=== PATIENT | female | born 1995 | race Caucasian/White ===

== ENCOUNTER 2023-10-07 13:01 | Emergency (ER) | payer BC, MEDICAID, SELFPAY ==
[2023-10-07 13:12] VITALS: BP 110/74; PULSE 99; RESP 18; TEMP 36.9; O2SAT 100; BMI 35.5
--- NOTE | 2023-10-07 13:25 | ED.NAVMDI1 ---
Documented by User: WILD Briggs 10/07/23 15:28 HPI - Nausea/Vomiting/Diarrhea General Chief complaint: Nausea/Vomiting/Diarrhea Stated complaint: NAUSEA/VOMITING Time Seen by Provider: 10/07/23 13:17 Source: patient Mode of arrival: walk-in History of Present Illness HPI Narrative: Patient is a 27-year-old female who presents to the emergency department for vomiting and diarrhea that began today. She reports diffuse upper abdominal pain. No fevers. She has not had any significant upper respiratory symptoms although she has had a mild cough. No sick contacts in the home. She is unsure if she may be . She states she has had urinary frequency. No medications taken prior to arrival. She arrives to the emergency department with a large tumbler of water that she states she has been sipping on but is unable to hold down. Related Data Previous Rx's Medication Instructions Recorded hyoscyamine sulfate 0.125 mg 0.125 mg PO Q6H PRN abdominal pain 10/07/23 tablet (Levsin) #12 tabs ondansetron 4 mg disintegrating 4 mg PO Q6H PRN nausea and 10/07/23 tablet vomiting #12 tabs Allergies Allergy/AdvReac Type Severity Reaction Status Date / Time No Known Drug Allergies Allergy Verified 10/07/23 13:18 Review of Systems ROS Constitutional Denies: fever or chills Ears, nose, mouth, and throat Denies: throat pain or nasal congestion Cardiovascular Denies: chest pain Respiratory Reports: cough; Denies: shortness of breath Gastrointestinal Reports: abdominal pain, nausea, vomiting and diarrhea Genitourinary Reports: urinary frequency Musculoskeletal Denies: back pain Integumentary/Breast Denies: rash Neurological Denies: headache Exam Narrative Exam Narrative: Gen.: Awake, alert, in no distress Head: Normocephalic, atraumatic ENT: Moist mucous membranes Respiratory: No respiratory distress Gastrointestinal: Abdomen is soft, nondistended and diffusely tender to palpation across the upper abdomen with no guarding or rebound Extremities: Moves extremities equally Psych: Normal mood and affect Neuro: No focal neuro deficit Skin: Warm, dry, intact Constitutional Vital Signs, click to edit/add: Last Vital Signs Temp 98.5 F 10/07/23 13:12 Pulse 100 H 10/07/23 14:57 Resp 18 10/07/23 14:57 BP 106/76 10/07/23 14:57 Pulse Ox 100 10/07/23 14:57 O2 Del Method Room Air 10/07/23 13:12 Course Vital Signs Vital signs: Vital Signs Temperature 98.5 F 10/07/23 13:12 Pulse Rate 99 H 10/07/23 13:12 Respiratory Rate 18 10/07/23 13:12 Blood Pressure 110/74 10/07/23 13:12 Pulse Oximetry 100 10/07/23 13:12 Oxygen Delivery Method Room Air 10/07/23 13:12 Temperature 98.5 F 10/07/23 13:12 Pulse Rate 100 H 10/07/23 14:57 Respiratory Rate 18 10/07/23 14:57 Blood Pressure 106/76 10/07/23 14:57 Pulse Oximetry 100 10/07/23 14:57 Oxygen Delivery Method Room Air 10/07/23 13:12 MDM - Nausea/Vomiting/Diarrhea MDM Narrative Medical decision making narrative: Patient treated with IV fluids, Zofran, Levsin, Pepcid. She reported feeling improved. Lab studies show 16,[address] of the abdomen and pelvis was performed showing evidence of mild colitis, in the clinical setting of 1 day of vomiting and diarrhea, the patient is discharged home with Levsin and Zofran. Her urine specimen is pending and will be checked prior to discharge. Follow-up with PCP and return to the ER if symptoms change or worsen. Medical Records Attestation: I reviewed the patient's medical records. Lab Data Attestation: I reviewed the patient's lab results. Labs: Lab Results 10/07/23 10/07/23 Range/Units 13:34 15:10 WBC 16.4 H (4.0-11.0) 10^3/uL RBC 4.40 (4.20-5.40) 10^6/uL Hgb 13.4 (12.0-16.0) g/dL Hct 40.1 (36.0-48.0) % MCV 91.1 (81.0-99.0) fL MCH 30.5 (26.7-34.0) pg MCHC 33.4 (29.9-35.2) g/dL RDW 12.6 (11.0-15.0) % Plt Count 279 (150-450) 10^3/uL MPV 9.9 (9.5-13.5) fL Neut % (Auto) 89.5 H (43.0-75.0) % Lymph % (Auto) 7.7 L (20.5-60.0) % [place] % (Auto) 2.3 (1.7-12.0) % Eos % (Auto) 0.2 L (0.9-7.0) % Baso % (Auto) 0.1 L (0.2-2.0) % Neut # (Auto) 14.7 H (1.4-6.5) 10^3/uL Lymph # (Auto) 1.3 (1.2-3.8) 10^3/uL [place] # (Auto) 0.4 (0.3-0.8) 10^3/uL Eos # (Auto) 0.0 (0.0-0.7) 10^3/uL Baso # (Auto) 0.0 (0.0-0.1) 10^3/uL Abs Immat Gran (auto) 0.04 H (0.00-0.03) 10^3/uL Imm/Tot Granulo (auto) 0.2 (0.0-0.5) % Sodium 136 (136-145) mmol/L Potassium 3.5 (3.5-5.1) mmol/L Chloride 102 (98-107) mmol/L Carbon Dioxide 24.2 (21.0-32.0) mmol/L Anion Gap 13.3 BUN 13.0 (7.0-18.0) mg/dL Creatinine 0.85 (0.55-1.02) mg/dL Est GFR ( Amer) >60 (>=60) Est GFR (Non-Af Amer) >60 (>=60) BUN/Creatinine Ratio 15.3 Glucose 99 (74-106) mg/dL Lactate 1.6 (0.4-2.0) mmol/L Calcium 8.5 (8.5-10.1) mg/dL Total Bilirubin 0.3 (0.2-1.0) mg/dL AST 24 (15-37) U/L ALT 28 (14-59) U/L Alkaline Phosphatase 99 (46-116) U/L Total Protein 7.7 (6.4-8.2) g/dL Albumin 3.6 (3.4-5.0) g/dL Globulin 4.1 g/dL Albumin/Globulin Ratio 0.9 Lipase 39.0 (16.0-77.0) U/L Serum HCG, Qual Negative (NEGATIVE) Urine Color Lt. yellow (YELLOW) Urine Clarity Clear (CLEAR) Urine pH 6.0 (5.0-9.0) Ur Specific [place] 1.010 (1.005-1.025) Urine Protein Negative (NEG/TRACE) mg/dL Urine Glucose (UA) Negative (NEGATIVE) mg/dL Urine Ketones Negative (NEGATIVE) mg/dL Urine Occult Blood Negative (NEGATIVE) Urine Nitrite Negative (NEGATIVE) Urine Bilirubin Negative (NEGATIVE) Urine Urobilinogen 0.2 (0.2-1.0) EU/dL Ur Leukocyte Esterase Negative (NEGATIVE) Imaging Data CT scan - abdomen: Attestation: I have reviewed the pertinent imaging results. Radiologist's impression: Procedure: CT abdomen pelvis w con EXAM: CT abdomen pelvis w con HISTORY: Abdominal pain, vomiting COMPARISON: None. TECHNIQUE: CT abdomen pelvis w con FINDINGS: LOWER CHEST: LUNG BASES / PLEURA: Normal. DISTAL ESOPHAGUS: Normal. HEART / VESSELS: No significant abnormality. ABDOMEN and PELVIS: LIVER: Normal. BILIARY TRACT: Normal. GALLBLADDER: No abnormality. PANCREAS: Normal. SPLEEN: Normal. ADRENALS: Normal. KIDNEYS: Symmetric excretion of contrast. LYMPH NODES: None enlarged. STOMACH / SMALL BOWEL: Mild wall thickening of a few loops of small bowel in the lower abdomen.. COLON / APPENDIX: The: Is mildly but diffusely edematous with minimal adjacent fat stranding. The colon is also fluid-filled. The appendix is normal. PERITONEUM / MESENTERY: Normal. RETROPERITONEUM: Normal. VESSELS: No significant abnormality. URINARY BLADDER: Normal. REPRODUCTIVE ORGANS: The uterus is retroverted. No suspicious adnexal mass. BODY WALL: No significant abnormality. MUSCULOSKELETAL: No significant abnormality. IMPRESSION: Findings suggestive of mild enterocolitis in the appropriate clinical setting. Electronically authenticated by: ANN MARIE SANABRIA Date: 10/07/2023 15:15 Discharge Plan Discharge Chief Complaint: Nausea/Vomiting/Diarrhea Clinical Impression: Vomiting and diarrhea Patient Disposition: Home, Self-Care Time of Disposition Decision: 15:22 Condition: Good Prescriptions / Home Meds: New hyoscyamine sulfate [Levsin] 0.125 mg tablet 0.125 mg PO Q6H PRN (Reason: abdominal pain) Qty: 12 0RF ondansetron 4 mg tablet,disintegrating 4 mg PO Q6H PRN (Reason: nausea and vomiting) Qty: 12 0RF Instructions: Acute Nausea and Vomiting (ED), Acute Abdominal Pain (ED) Stand Alone Forms: Portal Instructions Referrals: Physician,Non-Staff, MD [Primary Care Provider] - 1 week Discharge Date/Time: 10/07/23 15:55 Documented by User: Sergio Bobo MD 10/07/23 20:02 HPI - Nausea/Vomiting/Diarrhea General Chief complaint: Nausea/Vomiting/Diarrhea Stated complaint: NAUSEA/VOMITING Time Seen by Provider: 10/07/23 13:17 Related Data Previous Rx's Medication Instructions Recorded hyoscyamine sulfate 0.125 mg 0.125 mg PO Q6H PRN abdominal pain 10/07/23 tablet (Levsin) #12 tabs ondansetron 4 mg disintegrating 4 mg PO Q6H PRN nausea and 10/07/23 tablet vomiting #12 tabs Allergies Allergy/AdvReac Type Severity Reaction Status Date / Time No Known Drug Allergies Allergy Verified 10/07/23 13:18 Exam Constitutional Vital Signs, click to edit/add: Last Vital Signs Temp 98.5 F 10/07/23 13:12 Pulse 100 H 10/07/23 14:57 Resp 18 10/07/23 14:57 BP 106/76 10/07/23 14:57 Pulse Ox 100 10/07/23 14:57 O2 Del Method Room Air 10/07/23 13:12 Course Vital Signs Vital signs: Vital Signs Temperature 98.5 F 10/07/23 13:12 Pulse Rate 99 H 10/07/23 13:12 Respiratory Rate 18 10/07/23 13:12 Blood Pressure 110/74 10/07/23 13:12 Pulse Oximetry 100 10/07/23 13:12 Oxygen Delivery Method Room Air 10/07/23 13:12 Temperature 98.5 F 10/07/23 13:12 Pulse Rate 100 H 10/07/23 14:57 Respiratory Rate 18 10/07/23 14:57 Blood Pressure 106/76 10/07/23 14:57 Pulse Oximetry 100 10/07/23 14:57 Oxygen Delivery Method Room Air 10/07/23 13:12 MDM - Nausea/Vomiting/Diarrhea MDM Narrative Medical decision making narrative: Patient treated with IV fluids, Zofran, Levsin, Pepcid. She reported feeling improved. Lab studies show 16,[address] of the abdomen and pelvis was performed showing evidence of mild colitis, in the clinical setting of 1 day of vomiting and diarrhea, the patient is discharged home with Levsin and Zofran. Her urine specimen is pending and will be checked prior to discharge. Follow-up with PCP and return to the ER if symptoms change or worsen. I, Dr Bobo, have reviewed the above progress note and course of action in the ER; agree with the above. I have personally seen and evaluated this patient, gone over history and physical, and discussed disposition and treatment plan with the patient. Lab Data Labs: Lab Results 10/07/23 10/07/23 Range/Units 13:34 15:10 WBC 16.4 H (4.0-11.0) 10^3/uL RBC 4.40 (4.20-5.40) 10^6/uL Hgb 13.4 (12.0-16.0) g/dL Hct 40.1 (36.0-48.0) % MCV 91.1 (81.0-99.0) fL MCH 30.5 (26.7-34.0) pg MCHC 33.4 (29.9-35.2) g/dL RDW 12.6 (11.0-15.0) % Plt Count 279 (150-450) 10^3/uL MPV 9.9 (9.5-13.5) fL Neut % (Auto) 89.5 H (43.0-75.0) % Lymph % (Auto) 7.7 L (20.5-60.0) % [place] % (Auto) 2.3 (1.7-12.0) % Eos % (Auto) 0.2 L (0.9-7.0) % Baso % (Auto) 0.1 L (0.2-2.0) % Neut # (Auto) 14.7 H (1.4-6.5) 10^3/uL Lymph # (Auto) 1.3 (1.2-3.8) 10^3/uL [place] # (Auto) 0.4 (0.3-0.8) 10^3/uL Eos # (Auto) 0.0 (0.0-0.7) 10^3/uL Baso # (Auto) 0.0 (0.0-0.1) 10^3/uL Abs Immat Gran (auto) 0.04 H (0.00-0.03) 10^3/uL Imm/Tot Granulo (auto) 0.2 (0.0-0.5) % Sodium 136 (136-145) mmol/L Potassium 3.5 (3.5-5.1) mmol/L Chloride 102 (98-107) mmol/L Carbon Dioxide 24.2 (21.0-32.0) mmol/L Anion Gap 13.3 BUN 13.0 (7.0-18.0) mg/dL Creatinine 0.85 (0.55-1.02) mg/dL Est GFR ( Amer) >60 (>=60) Est GFR (Non-Af Amer) >60 (>=60) BUN/Creatinine Ratio 15.3 Glucose 99 (74-106) mg/dL Lactate 1.6 (0.4-2.0) mmol/L Calcium 8.5 (8.5-10.1) mg/dL Total Bilirubin 0.3 (0.2-1.0) mg/dL AST 24 (15-37) U/L ALT 28 (14-59) U/L Alkaline Phosphatase 99 (46-116) U/L Total Protein 7.7 (6.4-8.2) g/dL Albumin 3.6 (3.4-5.0) g/dL Globulin 4.1 g/dL Albumin/Globulin Ratio 0.9 Lipase 39.0 (16.0-77.0) U/L Serum HCG, Qual Negative (NEGATIVE) Urine Color Lt. yellow (YELLOW) Urine Clarity Clear (CLEAR) Urine pH 6.0 (5.0-9.0) Ur Specific [place] 1.010 (1.005-1.025) Urine Protein Negative (NEG/TRACE) mg/dL Urine Glucose (UA) Negative (NEGATIVE) mg/dL Urine Ketones Negative (NEGATIVE) mg/dL Urine Occult Blood Negative (NEGATIVE) Urine Nitrite Negative (NEGATIVE) Urine Bilirubin Negative (NEGATIVE) Urine Urobilinogen 0.2 (0.2-1.0) EU/dL Ur Leukocyte Esterase Negative (NEGATIVE) Discharge Plan Discharge Chief Complaint: Nausea/Vomiting/Diarrhea Clinical Impression: Vomiting and diarrhea Patient Disposition: Home, Self-Care Time of Disposition Decision: 15:22 Condition: Good Prescriptions / Home Meds: New hyoscyamine sulfate [Levsin] 0.125 mg tablet 0.125 mg PO Q6H PRN (Reason: abdominal pain) Qty: 12 0RF ondansetron 4 mg tablet,disintegrating 4 mg PO Q6H PRN (Reason: nausea and vomiting) Qty: 12 0RF Instructions: Acute Nausea and Vomiting (ED), Acute Abdominal Pain (ED) Stand Alone Forms: Portal Instructions Referrals: Physician,Non-Staff, MD [Primary Care Provider] - 1 week Discharge Date/Time: 10/07/23 15:55
[2023-10-07] MEDS: FAMOTIDINE/PF 20 MG/2 ML VIAL IV (13:36)
[2023-10-07] MEDS: ONDANSETRON PF 4 MG/2 ML VIAL IV (13:36)
[2023-10-07] MEDS: 0.9 % SODIUM CHLORIDE 1,000 ML 999 ML IV (13:36)
[2023-10-07] MEDS: HYOSCYAMINE SULFATE 0.125 MG TAB.SUBL SL (13:36)
[2023-10-07 13:45] LABS: Basophils Percent Auto 0.1 % (0.2-2.0); Eosinophils Percent Auto 0.2 % (0.9-7.0); Hematocrit 40.1 % (36.0-48.0); Hemoglobin 13.4 g/dL (12.0-16.0); Immature Granulocytes Abs Auto 0.04 10^3/uL (0.00-0.03); Immature Granulocytes Pct Auto 0.2 % (0.0-0.5); Lymphocytes Absolute Auto 1.3 10^3/uL (1.2-3.8); Lymphocytes Percent Auto 7.7 % (20.5-60.0); Mean Corpuscular HGB Conc 33.4 g/dL (29.9-35.2); Mean Corpuscular Hemoglobin 30.5 pg (26.7-34.0); Mean Corpuscular Volume 91.1 fL (81.0-99.0); Mean Platelet Volume 9.9 fL (9.5-13.5); Monocytes Absolute Auto 0.4 10^3/uL (0.3-0.8); Monocytes Percent Auto 2.3 % (1.7-12.0); Neutrophils Absolute Auto 14.7 10^3/uL (1.4-6.5); Neutrophils Percent Auto 89.5 % (43.0-75.0); Platelet Count 279 10^3/uL (150-450); Red Cell Distribution Width 12.6 % (11.0-15.0); White Blood Count 16.4 10^3/uL (4.0-11.0)
--- NOTE | 2023-10-07 13:48 | CT_ITS ---
The [address] [address] Patient Name: BALDEV SHAIKH MRN: [id number] date: 1995 Sex: F Assigned Patient Location: ER Current Patient Location: ER Accession/Order Number: [id number] Exam Date: 10/07/2023 14:25 Report Date: 10/07/2023 15:15 At the request of: ROSY ARTHUR Procedure: CT abdomen pelvis w con EXAM: CT abdomen pelvis w con HISTORY: Abdominal pain, vomiting COMPARISON: None. TECHNIQUE: CT abdomen pelvis w con FINDINGS: LOWER CHEST: LUNG BASES / PLEURA: Normal. DISTAL ESOPHAGUS: Normal. HEART / VESSELS: No significant abnormality. ABDOMEN and PELVIS: LIVER: Normal. BILIARY TRACT: Normal. GALLBLADDER: No abnormality. PANCREAS: Normal. SPLEEN: Normal. ADRENALS: Normal. KIDNEYS: Symmetric excretion of contrast. LYMPH NODES: None enlarged. STOMACH / SMALL BOWEL: Mild wall thickening of a few loops of small bowel in the lower abdomen.. COLON / APPENDIX: The: Is mildly but diffusely edematous with minimal adjacent fat stranding. The colon is also fluid-filled. The appendix is normal. PERITONEUM / MESENTERY: Normal. RETROPERITONEUM: Normal. VESSELS: No significant abnormality. URINARY BLADDER: Normal. REPRODUCTIVE ORGANS: The uterus is retroverted. No suspicious adnexal mass. BODY WALL: No significant abnormality. MUSCULOSKELETAL: No significant abnormality. CT/CT abdomen pelvis w con IMPRESSION: Findings suggestive of mild enterocolitis in the appropriate clinical setting. Electronically authenticated by: ANN MARIE SANABRIA Date: 10/07/2023 15:15
[2023-10-07 13:56] LABS: HCG Qualitative NEGATIVE (NEGATIVE)
[2023-10-07 14:03] LABS: Lactate/Lactic Acid 1.6 mmol/L (0.4-2.0)
[2023-10-07 14:10] LABS: Alanine Aminotransferase 28 U/L (14-59); Albumin Globulin Ratio 0.9; Albumin Level 3.6 g/dL (3.4-5.0); Alkaline Phosphatase 99 U/L (46-116); Anion Gap 13.3; Aspartate Amino Transferase 24 U/L (15-37); BUN Creatinine Ratio 15.3; Bilirubin Total 0.3 mg/dL (0.2-1.0); Calcium 8.5 mg/dL (8.5-10.1); Carbon Dioxide 24.2 mmol/L (21.0-32.0); Chloride 102 mmol/L (98-107); Estimated GFR (African America >60 (>=60); Estimated GFR (Non-African Ame >60 (>=60); Globulin 4.1 g/dL; Glucose 99 mg/dL (74-106); Potassium 3.5 mmol/L (3.5-5.1); Sodium 136 mmol/L (136-145); Total Protein 7.7 g/dL (6.4-8.2)
[2023-10-07 14:57] VITALS: BP 106/76; PULSE 100; RESP 18; O2SAT 100
[2023-10-07 15:35] LABS: Bilirubin Urine NEGATIVE (NEGATIVE); Blood Urine NEGATIVE (NEGATIVE); Clarity Urine CLEAR (CLEAR); Color Urine LT. YELLOW (YELLOW); Glucose Urine UA NEGATIVE (NEGATIVE); Ketones Urine NEGATIVE (NEGATIVE); Leukocyte Esterase Urine NEGATIVE (NEGATIVE); Nitrite Urine NEGATIVE (NEGATIVE); Protein Urine NEGATIVE (NEG/TRACE); Urobilinogen Urine 0.2 EU/dL (0.2-1.0)
[2023-10-07 15:37] LABS: Urine Microscopic Indicated NO
== END 2023-10-07 15:55 | disposition home or self-care (01) ==
PROVIDERS: Physician Assistant; Emergency Provider Emergency Medicine
DX: R11.2 Nausea with vomiting, unspecified (principal); R19.7 Diarrhea, unspecified
CPT/HCPCS: 36415; 74177; 80053; 81003; 83605; 83690; 84703; 85025; 96374; 96375; 99285; Q9967